=== PATIENT | male | born 1955 | race Caucasian/White ===

== ENCOUNTER 2019-11-03 10:20 | Emergency (ER) | payer OTHER ==
[~2019-11-03] VITALS: Ht 185.4 cm; Wt 121.6 kg
[2019-11-03 10:31] VITALS: BP_SYST 142
--- NOTE | 2019-11-03 10:35 | NUR ---
Patient to ER bed 05 to gown for evaluation. Side rails up.
--- NOTE | 2019-11-03 11:10 | NUR ---
Patient presented to ER C/O Right lower leg redness and swelling post fall. Patient A&ox4, ambulatory to ER, skin pink and warm, pain 4/10, denies N/V/D cap refill <3, pedal pulses present, toes pink and pt able to slay, move all digits. Patient states he sustained a fall at work x8 days ago, was inpatient x1 week at [facility]. Patient states right leg pain has been present x1 week, increased in pain today. Patient states he took PO Hydrocodone & muscle relaxer at 0800.
--- NOTE | 2019-11-03 11:20 | NUR ---
ER Dr. Perez at bedside examining patient.
[2019-11-03] MEDS ORDERED: LIDOCAINE 1% 10 MG/ML, 20 ML MDV INJ ONE (11:30)
--- NOTE | 2019-11-03 11:45 | NUR ---
I&D Procedure done by Dr. Ana zaidi using sterile technique. Lidocaine 1% used. Wound packed with. Adaptic, 4x4 and armond to wound. scant amt of bleeding noted. Wound care discussed w/ patient. Pt tolerated procedure well.
[2019-11-03 12:20] VITALS: BP_SYST 138
--- NOTE | 2019-11-03 12:20 | NUR ---
Patient given written and verbal discharge instructions and verbalizes understanding. ER MD discussed with patient the results and treatment provided. Patient in stable condition. ID arm band removed. No Rx given. Patient educated on pain management and to follow up with PMD. Pain Scale 3/10 tolerable for pt. Opportunity for questions provided and answered. Medication side effect fact sheet provided.
== END 2019-11-03 12:20 | disposition home or self-care (01) ==
LOC: SED 10:20
DX: S80.11XA Contusion of right lower leg, initial encounter (principal); Z88.0 Allergy status to penicillin; W18.39XA Other fall on same level, initial encounter; Y93.89 Activity, other specified; Y92.89 Other specified places as the place of occurrence of the external cause; Y99.8 Other external cause status
CPT/HCPCS: 10060; 99283; J2001